=== PATIENT | male | born 1990 | race Two or more races ===

== ENCOUNTER 2022-12-30 01:12 | Emergency (ER) | payer OTHER ==
[~2022-12-30] VITALS: Ht 180.3 cm; Wt 81.6 kg
[2022-12-30] MEDS ORDERED: VERAPAMIL HCL80 MG PO (01:24)
== END 2022-12-30 02:48 | disposition home or self-care (01) ==
LOC: ER 01:12
DX: G43.809 Other migraine, not intractable, without status migrainosus (principal)
CPT/HCPCS: 96372; 99284; J1885; J2765